=== PATIENT | female | born 1985 | race Caucasian/White ===

== ENCOUNTER 2024-07-01 10:27 | Inpatient (IN) | payer BC ==
[2024-07-07] MEDS ORDERED: miSOPROStoL 200 MCG TAB PO PRN (06:20)
[2024-07-07] MEDS ORDERED: TRANEXAMIC 1,000 MG/100ML-NACL 1,000 MG in EMPTY BAG 1 BAG IV PRN (06:20)
[2024-07-07] MEDS ORDERED: CARBOPROST TROMETHAMINE 250 MCG/ML 1 ML AMP IM PRN (06:20)
[2024-07-07] MEDS ORDERED: OXYTOCIN 10 UNIT/ML 1 ML VIAL IM PRN (06:20)
[2024-07-07] MEDS ORDERED: LIDOCAINE 0.5% (PF) 5 MG/ML (50 ML SDV) SQ PRN (06:20)
[2024-07-07] MEDS ORDERED: miSOPROStoL 200 MCG TAB RECTAL PRN (06:20)
[2024-07-07] MEDS ORDERED: METHYLERGONOVINE 0.2 MG/ML 1 ML AMP IM PRN (06:20)
[2024-07-07] MEDS ORDERED: TERBUTALINE 1 MG/ML VIAL SQ PRN (06:20)
[2024-07-07 07:03] LABS: Basophils % (A) 0 %; Eosinophils # (A) 0.1 k/uL (0-0.7); Eosinophils % (A) 1 %; Lymphocytes % (A) 22 %; MCH 29.7 pg (25.0-35.0); MCHC 32.5 g/dL (31.0-37.0); MCV 91.2 fL (80.0-100.0); Mean Platelet Volume 7.4; Monocytes # (A) 0.5 k/uL (0-1.0); Monocytes % (A) 6 %; Neutrophils # (A) 6.1 k/uL (1.3-7.7); Neutrophils % (A) 68 %; Platelet Count 216 k/uL (150-450); RBC 4.38 m/uL (3.80-5.40); RDW 13.4 % (11.5-15.5); WBC 8.9 k/uL (3.8-10.6)
[2024-07-07 07:08] VITALS: RESP 16
--- NOTE | 2024-07-07 07:11 | P.HPOB ---
History of Present Illness H&P Date: 07/07/24 Chief Complaint: induction of labor 39 year old at 40 weeks and 6 days with EDC of 07/01/2024 by LMP consistent with 10 week US who presents for induction of labor. The has been essentially uncomplicated. The fetus is estimated in the 89%ile for weight based on a 33 week US. work-up: blood type O negative, antibody screen negative (s/p rhogam at 28 weeks), rubella non-immune, VDRL non-reactive, HBsAg negative, HIV negative, HCV non-reactive, gonorrhea negative, chlamydia negative, 1 hour GTT wnl, GBS negative. Past Medical History Past Medical History: No Reported History History of Any Multi-Drug Resistant Organisms: None Reported Past Surgical History: Appendectomy Past Psychological History: No Psychological Hx Reported Past Alcohol Use History: None Reported Past Drug Use History: None Reported Medications and Allergies Home Medications Medication Instructions Recorded Confirmed Type Vit No.179/Iron/Folic 1 tab PO DAILY 07/07/24 07/07/24 History [ Tablet] Allergies Allergy/AdvReac Type Severity Reaction Status Date / Time No Known Allergies Allergy Verified 07/07/24 06:15 Exam Intake and Output 07/06/24 07/07/24 07/07/24 22:59 06:59 14:59 Other: Weight 94.347 kg Focused physical exam is performed. This is a healthy-appearing in no apparent distress. Breathing is non-labored. Abdomen is gravid and non-tender. Cervical exam is 2/70/-2. AROM is undertaken with clear fluid noted. Extremities non-tender and non-edematous. heart tones are Category I and tocometer is graphing contractions every 5-10 minutes. Results Result Diagrams: 07/07/24 06:35 Assessment and Plan Assessment: 39 year old at 40 weeks and 6 days presenting for induction of labor Plan: Admit, clear liquid diet, pitocin per protocol, continuous EFM and tocometer, epidural prn.
[2024-07-07] MEDS: OXYTOCIN 30 UNITS/500 ML NS 30 UNIT in SALINE 1 500ML.BAG IV SCH (07:14)
[2024-07-07] MEDS: LACTATED RINGERS 1,000 ML IV SCH ×2 (07:16→23:57)
[2024-07-07] MEDS ORDERED: fentaNYL (PF) 50 MCG/ML 5 ML AMP ONE (14:02)
[2024-07-07] MEDS ORDERED: SODIUM CHLORIDE 0.9% 250 ML BAG ONE (14:02)
[2024-07-07] MEDS ORDERED: ROPIVACAINE 5 MG/ML 30 ML VIAL ONE (14:02)
[2024-07-07] MEDS: diphenhydrAMINE 50 MG/ML 1 ML VIAL IVP STA (20:25)
[2024-07-07] MEDS: CITRIC ACID-SODIUM CITRATE 15 ML CUP PO ONE (21:18)
[2024-07-07] MEDS ORDERED: MORPHINE SULFATE (PF) 0.3 MG/0.3 ML SYR ONE (21:26)
[2024-07-07] MEDS ORDERED: LIDOCAINE HCL/PF 20 MG/ML 10 ML AMP ONE (21:26)
[2024-07-07] MEDS ORDERED: KETOROLAC 15 MG/ML 1 ML VIAL ONE (21:26)
[2024-07-07] MEDS ORDERED: OXYTOCIN 30 UNITS/500 ML NS BAG IV ONE (21:26)
[2024-07-07] MEDS ORDERED: ONDANSETRON 4 MG/2 ML VIAL ONE (21:26)
[2024-07-07] MEDS ORDERED: OXYTOCIN 10 UNIT/ML 1 ML VIAL ONE (21:26)
[2024-07-07] MEDS ORDERED: NALBUPHINE (ANES) 10 MG/ML - 1 ML AMP ONE (21:26)
[2024-07-07] MEDS ORDERED: SIMETHICONE 80 MG CHEWABLE PO PRN (22:20)
[2024-07-07] MEDS ORDERED: METOCLOPRAMIDE 5 MG/ML 2 ML VIAL IVP PRN (22:20)
[2024-07-07] MEDS ORDERED: diphenhydrAMINE 25 MG CAP PO PRN (22:20)
[2024-07-07] MEDS ORDERED: ONDANSETRON 4 MG/2 ML VIAL IVP PRN (22:20)
[2024-07-07] MEDS ORDERED: diphenhydrAMINE 50 MG/ML 1 ML VIAL IVP PRN ×2 (22:20)
[2024-07-07] MEDS ORDERED: NALOXONE 0.4 MG/ML 1 ML VIAL IV PRN (22:20)
[2024-07-07] MEDS ORDERED: diphenhydrAMINE 50 MG CAP PO PRN (22:20)
[2024-07-07] MEDS ORDERED: ZOLPIDEM 5 MG TAB PO PRN (22:20)
--- NOTE | 2024-07-07 22:20 | P.OP ---
Date of Procedure: 07/07/24 Preoperative Diagnosis: 1. Term IUP at 40 weeks and 6 days 2. Arrest of active phase of labor Postoperative Diagnosis: 1. Term IUP at 40 weeks and 6 days 2. Arrest of active phase of labor 3. Occiput posterior presentation Procedure(s) Performed: Primary Lower Transverse Section Implants: None Anesthesia: local Surgeon: Letitia Hernandez Angiography Nurse #1: Geo Correa Estimated Blood Loss (ml): 500 IV fluids (ml): 1,200 Urine output (ml): 200 (clear yellow) Pathology: none sent Condition: stable Disposition: floor Indications for Procedure: Ms. Loo is a 39 year old at 40 weeks and 6 days gestation who presented to L&D for induction of labor. She progressed to 8 centimeters dilation at which time she had arrest of active phase of labor. She also had 90 minutes of pushing on cervix that was not fully dilated, which lead to some cervical swelling. section was recommended for maternal and well-being. The risks, benefits, and alternatives to section were discussed with the patient including risk of bleeding, infection, damage to surrounding structures including bladder/bowels/ureters, and post-operative VTE. The patient und erstands these risks and desires to proceed with section. Operative Findings: Colorless amniotic fluid. Viable male infant in occiput posterior presentation. Apgars 8/9. Weight 8 pounds and 5 ounces (3760 grams). Normal uterus, bilateral fallopian tubes, and ovaries. Description of Procedure: The patient was taken back to the operating room where spinal anesthesia was found to be adequate. Two grams of Ancef were given for infection prophylaxis. Vaginal preparation was done. She was prepared and draped in the dorsal supine position with a leftward tilt. A Pfannenstiel skin incision was made with the scalpel. The incision was carried down to the fascia with a bovie. The fascia was incised and extended laterally with Cook scissors. The superior aspect of the fascia was grasped with the Damion clamps. The underlying rectus muscle was dissected off sharply with Cook scissors. In a similar fashion, the inferior aspect of the fascia was elevated with Damion clamps and the rectus muscle and pyramidalis were dissected off. Excellent hemostasis was achieved with the bovie. The rectus muscle was in the midline down to the level of the pubic symphysis. Pre-peritoneal fatty tissue was bluntly dissected to expose the peritoneum. The peritoneum was found to be free of adherent bowel and entered sharply with Cook scissors. The peritoneal incision was extended superiorly and inferiorly to the bladder reflection with good visualization of the bladder. The bladder blade was inserted and vesicouterine peritoneum was identified. Intraabdominal survey revealed scant, clear peritoneal fluid and the thinned-out lower uterine segment. The bladder blade was repositioned to keep the bladder out of the operative field. The lower uterine segment was incised with a scalpel. Clear fluid was noted. The uterine incision was extended bluntly with lateral and upward traction. The fetus was in cephalic presentation. The head was elevated out of the pelvis with special attention paid to avoid using the uterine incision as a fulcrum. Gentle fundal pressure was applied once the head was brought into the incision. The was delivered with no difficulty and was noted to be crying spontaneously. The mouth and nose were suctioned with a bulb. The cord was clamped and cut. The was handed off to the retail customer service representative. IV oxytocin was initiated to facilitate uterine contractions. The placenta was delivered intact with manual massage of uterine fundus. The uterus was then exteriorized and the inside of the uterus was gently wiped with a lap sponge to assure complete removal of placental membranes. The uterine incision was closed with 0-Vicryl suture in a running locked fashion. A second imbricating layer was placed with 0-Vicryl. The ovaries and tubes were found to be normal. The uterus, tubes, and ovaries were then gently returned to the abdominal cavity. The abdomen was copiously suction irrigated. The uterine in cision was reinspected and excellent hemostasis was noted. The fascial layer was closed with a 0-Vicryl suture. The subcutaneous tissue was reapproximated with 2-0 Plain Gut. The skin was closed with 4-0 Monocryl in a subcuticular fashion.The patient tolerated the procedure well. All the counts were correct times two. The patient was taken to the recovery room in a stable condition. A physician assistant chief train dispatcher was utilized for the entire procedure due to the need for tissue retraction, dissection of vital structures, prevention and management of blood loss, and reduction in overall operative and anesthesia time as is the standard of care.
[2024-07-08] MEDS: ACETAMINOPHEN TAB 500 MG TAB PO SCH (02:03)
[2024-07-08] MEDS: KETOROLAC 15 MG/ML 1 ML VIAL IVP SCH (05:58)
[2024-07-08 06:35] LABS: Basophils % (A) 0 %; Eosinophils % (A) 0 %; HGB 10.4 gm/dL (11.4-16.0); Lymphocytes # (A) 1.4 k/uL (1.0-4.8); Lymphocytes % (A) 11 %; MCH 31.1 pg (25.0-35.0); MCHC 33.6 g/dL (31.0-37.0); MCV 92.4 fL (80.0-100.0); Mean Platelet Volume 8.5; Monocytes # (A) 0.7 k/uL (0-1.0); Monocytes % (A) 5 %; Neutrophils # (A) 10.8 k/uL (1.3-7.7); Neutrophils % (A) 82 %; Platelet Count 187 k/uL (150-450); RBC 3.35 m/uL (3.80-5.40); RDW 13.4 % (11.5-15.5); WBC 13.1 k/uL (3.8-10.6)
--- NOTE | 2024-07-08 06:51 | P.PN ---
Progress Note - Text Progress Note Date: 07/08/24 Postoperative day 1 status post section under epidural anesthesia, and epidural morphine given for postoperative analgesia, patient doing well, there is no anesthesia related complications, Patient had no headache, vital signs stable , Assessment and plan= postop day 1 status post , doing well there is no anesthesia related complication.
--- NOTE | 2024-07-08 08:58 | P.PNOBGPC ---
Subjective - Subjective Principal diagnosis: s/p section Interval history: The patient is doing well this morning and had no acute events overnight. She has no complaints this morning. She reports minimal lochia, passing flatus, ambulating, and eating/drinking without nausea or vomiting. Awaiting void. She is breast feeding her without difficulty. She denies chest pain, shortness of breathing, fevers, or chills overnight. She denies pain or swelling in the legs. Patient reports: Reports appetite normal, Reports voiding normally, Reports pain well controlled, Reports ambulating normally : doing well Objective - Vital Signs Latest vital signs: Vital Signs Temp Pulse Resp BP Pulse Ox 07/08/24 07:46 98.2 F 66 16 115/71 97 07/08/24 04:00 70 16 105/51 95 07/08/24 00:16 97.4 F L 67 16 123/62 95 07/08/24 00:01 58 L 16 115/56 95 07/07/24 23:46 97.3 F L 63 16 113/61 96 07/07/24 23:31 65 16 113/58 95 07/07/24 23:16 97.5 F L 65 16 118/61 95 07/07/24 23:01 98.6 F 65 16 117/59 98 07/07/24 22:46 97.2 F L 67 16 110/55 97 07/07/24 22:31 97.7 F 75 16 105/54 97 07/07/24 22:16 98.8 F 90 16 104/58 97 Intake and Output 07/07/24 07/08/24 07/08/24 22:59 06:59 14:59 Intake Total 30.533 167 Output Total 390 730 Balance -359.467 -563 Intake: Intake, IV Titration 30.533 167 Amount Oxytocin 30 Units/500 ml 30.533 167 Ns 30 unit In Saline 1 500ml.bag @ Per Protocol IV .Q0M [facility] Rx#:[id number] Output: Urine 100 700 Uretheral ([place]) 400 Output, Estimated Blood 290 Loss Amount Output, Quantitative 30 Blood Loss Other: Voiding Method Indwelling Catheter - Exam Extremities: Present: normal Abdomen: Present: normal appearance, soft Incision: Present: normal, dry, intact Uterus: Present: normal, firm - Labs Labs: Abnormal Lab Results - Last 24 Hours (Table) 07/08/24 Range/Units 06:13 WBC 13.1 H (3.8-10.6) k/uL RBC 3.35 L (3.80-5.40) m/uL Hgb 10.4 L (11.4-16.0) gm/dL Hct 31.0 L (34.0-46.0) % Neutrophils # 10.8 H (1.3-7.7) k/uL Assessment and Plan Assessment: 39 year old now POD#1 s/p primary section Plan: 1. Postoperative. Patient meeting post-operative milestones appropriately. 2. Viable male infant. At bedside, doing well. Plan for circumcision. Dispo: Anticipate discharge home tomorrow.
[2024-07-08] MEDS: SENNOSIDES-DOCUSATE SODIUM 1 EACH TAB PO SCH (09:54)
[2024-07-08] MEDS: Rhogam IMMUNE GLOBULIN 1,500 UNIT/1 ML IM ONE (12:09)
[2024-07-09] MEDS: IBUPROFEN 800 MG TAB PO SCH (05:52)
[2024-07-09 07:57] VITALS: BP 122/77; PULSE 72; TEMP 97.8
--- NOTE | 2024-07-09 08:54 | P.DS ---
Providers Date of admission: 07/07/24 05:58 Expected date of discharge: 07/09/24 Attending physician: Letitia Hernandez MD Primary care physician: García Linda MD Hospital Course: Ms. Loo is a 39 year old now POD#2 s/p uncomplicated primary section for arrest of active phase of labor. The patient is doing well this morning and had no acute events overnight. She has no complaints this morning. She reports minimal lochia, passing flatus, voiding without difficulty, ambulating, and eating/drinking without nausea or vomiting. Infant doing well at bedside, s/p circumcision. She denies chest pain, shortness of breathing, fevers, or chills overnight. She denies pain or swelling in the legs. Postoperative restrictions are reviewed with the patient including pelvic rest for 6 weeks, no lifting heavier than 15 pounds for 6 weeks. The patient is encouraged to call the office if she experiences any heavy bleeding, foul- smelling discharge, breast complaints, or any if she has any other concerns. She will follow up in the office with in 2 weeks for postoperative exam. All questions are answered. Patient Condition at Discharge: Good Plan - Discharge Summary New Discharge Prescriptions: No Action Vit No.179/Iron/Folic [ Tablet] 1 tab PO DAILY Discharge Medication List Vit No.179/Iron/Folic [ Tablet] 1 tab PO DAILY 07/07/24 [History] Follow up Appointment(s)/Referral(s): Letitia Hernandez MD [STAFF PHYSICIAN] - 2 Weeks (Post C/S 07-21-2024 at 11:30am) Activity/Diet/Wound Care/Special Instructions: Instructions 1. Do not begin any exercise program for 3 weeks. 2. Do not resume sexual relations for 6 weeks or longer if uncomfortable. 3. You may take tub baths or showers at any time. 4. You may use tampons if desired after 6 weeks. 5. Keep any areas repaired with stitches clean and dry. 6. If you are not nursing, wear a good fitting, supportive bra during the day and limit fluid intake for at least 1 week to prevent breast engorgement. 7. Call the office, , within the next week to make appointment for your 6 week checkup if it has not already been made. 8. Report any of the following occurrences to the doctor promptly: a. Heavy, excessive bleeding b. Chills, fever c. Burning or frequency of urination d. Pain or redness and breasts if nursing e. Increasing pain or swelling of vulva (stitches). In addition to the above instructions, the following additional should be followed: 1. No heavy lifting or straining (exercising) until after 6 week checkup. 2. Keep abdominal incision clean and dry: You may wear a dressing if more comfortable. 3. Make office appointment for 2 weeks after delivery date. Discharge Disposition: HOME SELF-CARE
== END 2024-07-09 13:20 | disposition home or self-care (01) | DRG 788 ==
LOC: 4FBP 07-07 05:58
PROVIDERS: ADMIT Obstetrics & Gynecology; ATTEND Obstetrics & Gynecology
PROC: 10D00Z1 Extraction of Products of Conception, Low, Open Approach (ICD-10-PCS; principal; 2024-07-07 21:30)
DX: O48.0 Post-term pregnancy (principal); O62.1 Secondary uterine inertia; Z37.0 Single live birth; Z3A.40 40 weeks gestation of pregnancy
CPT/HCPCS: 85025; 86850; 86900; 86901